=== PATIENT | female | born 1935 | race Caucasian/White ===

== ENCOUNTER 2020-05-29 13:36 | Emergency (ER) | payer MEDICARE, OTHER ==
--- NOTE | 2020-05-29 13:43 | ED.PDOC ---
History of Present Illness - General Stated Complaint: Diarrhea, Atrial fibrillation Time Seen by Provider: 05/29/20 13:43 Additional Information: Patient sent to the emergency department from clinic by Dr. Ibarra. He was evaluating her for diarrhea and the patient was found to have a rapid heart rate. EKG showed atrial fibrillation. - History of Present Illness Initial Comments: Patient sent in from primary care provider's office for evaluation of atrial fibrillation. PatientDenies any complaints of chest pain, shortness of breath, palpitations, diaphoresis. 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 She does not have a known history of atrial fibrillation.Patient presented to her doctor's office with complaints of diarrhea intermittently for the last 2 weeks. The stools are brown and pudding- like in consistency. There has been no blood noted in the stools or melena. Patient denies any abdominal pain except for some cramping prior to passage of stools. She is not complaining of any fever chills or recent travel. Timing/Duration: other - 2 weeks Severity: moderate Improving Factors: nothing Worsening Factors: eating Associated Symptoms: denies symptoms Allergies/Adverse Reactions: Allergies Promethazine [From Phenergan] Allergy (Verified 05/29/20 13:57) Home Medications: Ambulatory Orders Unobtainable 05/29/20 Review of Systems - Review of Systems Constitutional: States: no symptoms reported. Denies: chills, fever, malaise EENTM: States: no symptoms reported Respiratory: States: no symptoms reported. Denies: short of breath Cardiology: States: no symptoms reported. Denies: chest pain, palpitations, syncope Gastrointestinal/Abdominal: States: see HPI, abdominal pain, diarrhea. Denies: vomiting Genitourinary: States: no symptoms reported Musculoskeletal: States: no symptoms reported Skin: States: no symptoms reported Neurological: States: no symptoms reported Endocrine: States: no symptoms reported Hematologic/Lymphatic: States: no symptoms reported Family Medical History - Family History Mother Family History: Unknown Living Status: Unknown Physical Exam - Physical Exam General Appearance: Alert, Comfortable Eye Exam: bilateral normal Ears, Nose, Throat: hearing grossly normal, normal ENT inspection Neck: non-tender, full range of motion, supple Respiratory: normal breath sounds Cardiovascular/Chest: tachycardia, irregularly irregular Gastrointestinal/Abdominal: normal bowel sounds, non tender, soft Back Exam: normal inspection, no CVA tenderness Extremity: normal range of motion, no pedal edema, no calf tenderness Neurologic: chemist proteins II-XII nml as tested, no motor/sensory deficits, oriented x 3, abnormal cerebellar tests Progress - Progress Progress: 05/29/20 16:57 IV normal saline 500 mL bolus. Initial rate control with [id number] and 19 mg IV bolus followed by drip of 5 and then 10 mg/h. Aspirin 324 mg By mouth and Lovenox 1mg/kg subcutaneous given. Patient is alert and comfortable now with a pulse rate of 87-1 05, sats 96% blood pressure 97/71. Her son notes that her blood pressure is always a bit on the low side and this is about typical for her. Infusion rate cut back to 8 mg/h. [facility] was called to request a bed at 3 PM. They just Called and stated that hospitalist would call soon to review the case for admission. 05/29/20 17:00 05/29/20 17:[address] Mcfarland, hospitalist on-call for [facility]: Will accept to their intermediate care unit. Transfer center will advise when bed available. - Results/Orders Results/Orders: Echocardiogram 157/min, atrial fibrillation with rapid ventricular response. QRS duration 86, noST segment elevation slight ST depression in lead II, V5 and V6. 05/29/20 13:55 stool [FECAL OCCULT BLOOD] Stat STOOL CULTURE Stat 05/29/20 14:00 EKG STAT 05/29/20 15:00 [id number] DRIP [Cardizem Drip] 125 mg Sodium Chloride 0.9% 100Ml [NS (NACL 0.9%) 100ml] 100 ml IVPB PRN Laboratory Results - last 24 hr 05/29/20 05/29/20 05/29/20 13:50 13:50 13:50 WBC 10.1 RBC 4.05 L Hgb 12.3 Hct 36.8 MCV 90.7 MCH 30.4 MCHC 33.5 RDW 13.6 Plt Count 259 MPV 9.1 Absolute Neuts (auto) 8.00 H Absolute Lymphs (auto) 1.40 Absolute Monos (auto) 0.70 Absolute Eos (auto) 0.10 Absolute Basos (auto) 0.10 Neutrophils % 78.5 H Lymphocytes % 13.4 L Monocytes % 6.6 Eosinophils % 0.9 L Basophils % 0.6 PT 10.8 INR 1.09 PTT (SP) 24.8 Sodium 134 L Potassium 3.5 L Chloride 96 L Carbon Dioxide 24 Anion Gap 17.5 BUN 27 H Creatinine 2.06 H BUN/Creatinine Ratio 13.1 Random Glucose 111 H Serum Osmolality 274.0 L Calcium 9.5 Total Bilirubin 0.7 AST 24 ALT 14 Alkaline Phosphatase 78 Creatine Kinase 62 CK-MB (CK-2) 2.3 CK-MB (CK-2) % Not Reportable Troponin I 0.36 H* Serum Total Protein 8.2 Albumin 4.1 Globulin 4.1 H Albumin/Globulin Ratio 1.0 L Vital Signs - 24 hr 05/29/20 05/29/20 14:05 14:51 Temperature 98.2 F Pulse Rate 148 H Pulse Rate [ 146 H 148 H Right Brachial] Respiratory 20 Rate Blood Pressure 130/97 [Right Arm] O2 Sat by Pulse 96 Oximetry EXAM DESCRIPTION: Chest,1 View CLINICAL HISTORY: Atrial fibrillation, admission COMPARISON: 14 April 2012 TECHNIQUE: AP portable chest FINDINGS: The patient is poststernotomy. The heart is at the upper limits of normal in size. Calcification of the mitral valve annulus is observed. The lungs are clear. No pleural fluid is seen. Degenerative changes are observed in the left shoulder. IMPRESSION: 1. The patient is poststernotomy. 2. The heart is at the upper limits of normal in size without evidence of congestive heart failure. Electronically signed by: Jarrett Walton MD 05/29/2020 2:15 PM Rapid COVID-19 test negative Departure - Departure Clinical Impression: Atrial fibrillation with rapid ventricular response, Non-ST elevation IA (NSTEMI), Diarrhea Disposition: Transfer to Hospital Departure Forms: ED Discharge - Pt. Copy, Patient Portal Self Enrollment Instructions: DI for Chest Pain Referrals: DMITRI NUNO [Primary Care Provider] - 1-2 Weeks Home Medications: Ambulatory Orders Unobtainable 05/29/20 Transfer to Outside Facility - Transfer Information Decision to Transfer Date: 05/29/20 Decision to Transfer Time: 15:00 Reason for Transfer: required specialist not available Accepting Facility: [facility]
[2020-05-29] MEDS ORDERED: SODIUM CHLORIDE 0.9% 1000ML 1,000 ML ONE (13:51)
[2020-05-29] MEDS ORDERED: diltiaZEM DRIP 125 MG/25 ML VIAL IVPB ONE (13:52)
[2020-05-29] MEDS ORDERED: SODIUM CHLORIDE 0.9% 500ML 500 ML IVS ONE (13:55)
[2020-05-29] MEDS ORDERED: SODIUM CHLORIDE 0.9% 100ML 100 ML IVPB ONE (13:55)
--- NOTE | 2020-05-29 14:17 | RAD ---
EXAM DESCRIPTION: Chest,1 View CLINICAL HISTORY: Atrial fibrillation, admission COMPARISON: 14 April 2012 TECHNIQUE: AP portable chest FINDINGS: The patient is poststernotomy. The heart is at the upper limits of normal in size. Calcification of the mitral valve annulus is observed. The lungs are clear. No pleural fluid is seen. Degenerative changes are observed in the left shoulder. IMPRESSION: 1. The patient is poststernotomy. 2. The heart is at the upper limits of normal in size without evidence of congestive heart failure. Electronically signed by: Jarrett Walton MD 05/29/2020 2:15 PM [facility]
[2020-05-29] MEDS ORDERED: ASPIRIN (CHEWABLE) 81 MG TAB PO ONE (14:51)
[2020-05-29] MEDS ORDERED: ENOXAPARIN SODIUM 60 MG/0.6 ML SYG SUBCU ONE (14:51)
[2020-05-29] MEDS ORDERED: diltiaZEM DRIP 125 MG in SODIUM CHLORIDE 0.9% 100ML 100 ML IVPB SCH (15:00)
[2020-05-29 18:46] VITALS: BP 97/78; TEMP 97.8; O2SAT 97
== END 2020-05-29 18:30 | disposition short-term general hospital (02) ==
LOC: ER 13:36
DX: I48.91 Unspecified atrial fibrillation (principal); R00.0 Tachycardia, unspecified; I21.4 Non-ST elevation (NSTEMI) myocardial infarction; R19.7 Diarrhea, unspecified; Z20.822 Contact with and (suspected) exposure to COVID-19; Z88.8 Allergy status to other drugs, medicaments and biological substances
CPT/HCPCS: 36415; 71045; 80053; 82550; 82553; 83880; 84484; 85025; 85610; 85730; 87635; 93005; J1650; J7030; J7040; J7050